=== PATIENT | female | born 1955 | race Caucasian/White ===

== ENCOUNTER 2024-12-17 13:09 | Outpatient (CLI) | payer MEDICARE | END 2024-12-17 13:10 | disposition home or self-care (01) | LOC: BICMAMMO 13:09 | PROVIDERS: ATTEND Internal Medicine Hematology & Oncology | DX: Z08 Encounter for follow-up examination after completed treatment for malignant neoplasm (principal); Z85.3 Personal history of malignant neoplasm of breast; Z90.12 Acquired absence of left breast and nipple | CPT/HCPCS: 77066; G0279 ==

== ENCOUNTER 2025-09-04 09:30 | Outpatient (CLI) | payer MEDICARE | END 2025-09-04 09:31 | disposition home or self-care (01) | LOC: PET 09:30 | PROVIDERS: ATTEND Internal Medicine Hematology & Oncology | DX: C50.812 Malignant neoplasm of overlapping sites of left female breast (principal); C82.80 Other types of follicular lymphoma, unspecified site | CPT/HCPCS: 78815; A9552 ==